=== PATIENT | male | born 1965 | race Caucasian/White ===

== ENCOUNTER → 2018-01-20 10:21 | Outpatient (CLI) | payer OTHER, SELFPAY ==
--- NOTE | 2018-01-20 10:23 | RAD_ITS ---
STUDY: X-RAY - RIGHT SHOULDER REASON FOR EXAM: Male, 52 years old. Shoulder pain TECHNIQUE: 3 view(s) of the shoulder. COMPARISON: Previous study of 10/14/2016 FINDINGS: Normal glenohumeral articulation. Normal acromioclavicular joint. Normal acromion. Normal humeral head and visualized proximal humerus. The soft tissue structures are unremarkable. Normal visualized pulmonary apex. RAD/Shoulder min 2 Views IMPRESSION: Normal x-ray examination of the shoulder. Electronically Signed: Daniele Sanabria MD at 18:17 EST , Service support ,
== END ==
PROVIDERS: Family Provider Internal Medicine; PCP Internal Medicine; Referring Provider Physician Assistant; Visit Provider Physician Assistant
DX: M25.511 Pain in right shoulder (principal)
CPT/HCPCS: 73030

== ENCOUNTER 2018-02-17 15:30 | Outpatient (RCR) | payer OTHER, SELFPAY ==
--- NOTE | 2018-02-08 13:59 | HP.PTEVAL_ITS ---
Patient's Visit Information KATHIE MILLER is a 52 year old M referred to Physical Therapy by LYNN Colvin with a diagnosis of RIGHT ROTATOR CUFF IMPINGEMENT. Date of Evaluation: 02/08/18 Physical Therapist: Naveed Diaz PT, Cert MDT, OCS - Visit Plan Frequency: 1-2x /Week Duration: 4 Weeks Plan: POSTURAL EX'S,RTC /SCAPULAR STRENGTHENING ,MODALITIES ON IF NEEDED - Subjective Findings: Tghis 52 y/o male presents to physical therapy with right shoulder imingement. Patient has had right shoulder pain since August no predisopsing factors otherthan general activities. Intially, seen family DR Mederos tried injections didn't help. Then 2 weesk ago seen Waldemar Bowen ,did x-rays - and did cortisone injection thus is better.Symptom worse ovehead activities ,cross arms ,moving to side affects ADL'S and job demands. Patient sleeping okay. Denies parthesia/tingling.Patient pain affects QOL and job demands/ADL'S. SOCIAL: . VOCATION: [employer] - Pain Right Shoulder Pain Intensity (Out of 10): 0 Pain Intensity Range: 10 - Objective POSTURE: mild foward posture. NEURO: intact. PALAPTION: unremarkable. AROM: shoulder flexion/abd 160 degrees,ER 90 ,IR 80. OP mild soreness end range. MMT: RTC 4/5 supraspinatous 4-5/,mild soreness,deltoid 4-/5 - Special Tests R Shoulder External Rotation Lag Test - RC Tear: Negative R Shoulder Supine Impingement Test - RC Tear: Negative R Shoulder Lift Off Test - Subscapular Tear: Negative R Shoulder Drop Sign - IS Test: Negative R Shoulder Empty Can - SS: Positive R Shoulder Belly Press - SupScap: Negative R Shoulder Neer - Impingement: Positive R Shoulder Carrington Clyde - Impingement: Positive - Goals Goal 1:: Independant with HEP. Goal Time Frame: 2-4 Weeks Goal 2:: Patient to be Independant with posture Goal Time Frame: 2-4 Weeks Goal 3:: Patient decrease pain with all activities 90% to improve function Goal Time Frame: 2-4 Weeks Goal 4:: Patient to improve RTC 5/5 to improve functioon Goal Time Frame: 2-4 Weeks Goal 5:: Patient to improve DASH SHOULDER YOSEPH by 5 points or greater to improve. Goal Time Frame: 2-4 Weeks - Rehabilitation Potential Physical Therapy Diagnosis: This patient has chronic tendonesis with impingement which affects function with OH activities with ADLS' and function Rehabilitation Potential: Good - Anticipated Interventions Patient/Client Instruction: Educate patient on: Condition, Plan of Care For the Purpose of:: To decrease pain, To increase ROM, To improve muscle performance and motor function, To improve ability to perform ADL's, To increase tolerance to activity/condition/position, To improve ability of physical actions for home/community/work/leisure, To improve health of tissue, To decrease soft tissue restriction, To improve ability to perform tasks related to life management Therapeutic Exercise to Include: Strength training, Postural training, Flexibilty training, Active ROM, Scapular Strength/Stabilization For the Purpose of:: To decrease pain, To increase ROM, To improve muscle performance and motor function, To improve ability of physical actions for home/community/work/leisure, To reduce risk of recurrence, To improve ability to perform tasks related to life management TENS: Yes IF ES: Yes Cryotherapy (ice pack, ice massage): Yes Thermo therapy (hot pack): Yes Ultrasound (thermal/non thermal): Yes For the Purpose of:: To decrease pain, To decrease swelling/inflammation, To improve health of tissue, To decrease soft tissue restriction Thank you for the opportunity to evaluate your patient. For Medicare and Medicare HMO plans, please review the plan of care and approve it. It will need to be FAXED BACK to us at [phone] for Medicare purposes. For Medicare only, by signing this I certify the plan of care. Please let me know if there are questions or concerns regarding this plan of care. Physician Signature:___ Date:
--- NOTE | 2018-02-17 15:59 | HP.PTDCSUM ---
HP - PT D/C Summary It has been my pleasure to treat KATHIE MILLER under orders from LYNN Colvin, for the diagnosis of RIGHT ROTATOR CUFF IMPINGEMENT for a total of 2 visit(s). Discharge Date: 02/17/18 Please see the following information for a summary of their discharge status. - Subjective Subjective: Doing well - Pain Right Shoulder Pain Intensity (Out of 10): 0 - Overall Improvement % Improvement: 100 - Objective Objective/Function: AROM FULL ROM. STRENGTH : RTC 5/5,DELTOID 4/5. -IMPINGMENT - Goals Goal 1:: Independant with HEP. Goal Progress: Goal Met Goal 2:: Patient to be Independant with posture Goal Progress: Goal Met Goal 3:: Patient decrease pain with all activities 90% to improve function Goal Progress: Goal Met Goal 4:: Patient to improve RTC 5/5 to improve functioon Goal Progress: Goal Met Goal 5:: Patient to improve DASH SHOULDER YOSEPH by 5 points or greater to improve. Goal Progress: Goal Met - Plan Plan: D/C - D/C Information Discharge Comments: HEP If there are questions or concerns regarding this patient's physical therapy, please feel free to call me at [phone]. Thank you for the referral of this patient. Sincerely, Naveed Diaz PT, Cert MDT, OCS
== END 2018-02-17 19:00 | disposition home or self-care (01) ==
LOC: PT 15:30
PROVIDERS: Family Provider Internal Medicine; PCP Internal Medicine; Referring Provider Physician Assistant; Visit Provider Physician Assistant
DX: M25.811 Other specified joint disorders, right shoulder (principal)
CPT/HCPCS: 97110; 97161

== ENCOUNTER 2018-03-18 15:28 | Emergency (ER) | payer OTHER, SELFPAY ==
[2018-03-18 15:29] VITALS: BP 145/94; PULSE 99; RESP 16; TEMP 37.1; O2SAT 95; BMI 35.0
--- NOTE | 2018-03-18 16:07 | ED.VISSUMM ---
- ER Visit Summary Date of Service: 03/18/18 Chief Complaint: Left thumb injury History of Present Illness: The patient is a 53 M presenting with left thumb injury. Patient was hammering and accidentally hit his left thumb. He is right-handed. This was not work related. He does not recall his last tetanus immunization. No other injuries. Physical Examination: Vitals are stable. Patient is afebrile. Alert no acute distress. HEENT exam is unremarkable. Neck is supple. Lungs are clear and equal bilaterally. Heart is regular rate and rhythm. Extremities left thumb 1.5 cm palmar laceration. 0.5 cm dorsal laceration. Tendon function is normal. Normal cap refill. Skin is warm and dry. No focal neurologic deficit. Remainder of exam is unremarkable. Emergency Department Course and Treatment: Patient was given tetanus IM. Digital block was performed. Laceration was irrigated. A total of 4 simple sutures were placed. 3 in the palmar laceration and one in the dorsal laceration. Patient tolerated this well. Advised wound care instructions. Advised to follow-up with primary care physician. Advised return to ED if worsening complaints. Disposition: Discharge home Impression: Left thumb laceration, laceration repair This note was generated with [employer] dictation software. It may contain incorrect words, spelling, and punctuation that were not noted in review of the chart prior to signing ED Disposition - Plan for ED Patient: Instructions: ED Laceration Hand Referrals: Ruby Early DO [Primary Care Provider] -
--- NOTE | 2018-03-18 16:08 | RAD_ITS ---
STUDY: X-RAY - LEFT HAND REASON FOR EXAM: Male, 53 years old. Film injury. TECHNIQUE: 3 view(s) of the hand. COMPARISON: None. FINDINGS: Normal radiocarpal articulation. Normal distal radioulnar joint. Normal visualized carpal bones. Normal carpal articulations Normal carpometacarpal articulation of the thumb. Normal second through fifth carpometacarpal joints. Normal metacarpi. Normal metacarpophalangeal joint of the thumb. Normal interphalangeal joint of the thumb. Normal proximal and distal phalanges of the thumb. Normal metacarpophalangeal joints of the second through fifth fingers. Normal proximal and distal interphalangeal joints of the second through fifth fingers. Normal phalanges of the second through fifth fingers. The soft tissue structures are unremarkable. RAD/Hand Min 3 Views IMPRESSION: Normal x-ray examination of the hand. Electronically Signed: Debra Galeana MD at 17:57 EST Tel , Service support ,
--- NOTE | 2018-03-18 18:15 | ED.DEP ---
ED Disposition - Plan for ED Patient: Instructions: ED Laceration Hand Referrals: Ruby Early DO [Primary Care Provider] -
[2018-03-18] MEDS: Diphth,Pertuss(Acell),Tet Vac 0.5 ML Vial IM (18:29)
== END 2018-03-18 18:37 | disposition home or self-care (01) ==
PROVIDERS: Emergency Provider Emergency Medicine; Family Provider Internal Medicine; PCP Internal Medicine
DX: S61.012A Laceration without foreign body of left thumb without damage to nail, initial encounter (principal); W22.8XXA Striking against or struck by other objects, initial encounter; Y93.9 Activity, unspecified; Y92.89 Other specified places as the place of occurrence of the external cause; Y99.9 Unspecified external cause status; E11.9 Type 2 diabetes mellitus without complications
CPT/HCPCS: 12001; 73130; 90471; 90715; 99283

== ENCOUNTER → 2019-04-23 | Outpatient (CLI) | payer OTHER, SELFPAY ==
[2019-04-23 12:36] VITALS: BMI 33.7
--- NOTE | 2019-04-23 12:40 | RAD_ITS ---
STUDY: X-RAY - RIGHT FOOT CLINICAL: Male, 54 years old. Foot pain/injury, heard pop, pain bottom of foot TECHNIQUE: 3 view(s) of the foot. COMPARISON: None. FINDINGS: There is a plantar calcaneal spur. Normal visualized subtalar, talonavicular, calcaneocuboid, tarsal and tarsometatarsal articulations. Normal metatarsi. Normal metatarsophalangeal joint of the great toe. There is a bipartite tibial sesamoid. Normal interphalangeal joint of the great toe. Normal phalanges of the great toe. Normal second through fifth metatarsophalangeal joints. Normal interphalangeal joints and phalanges of the lesser toes. Soft tissue swelling. RAD/Foot min 3 Views IMPRESSION: Soft tissue swelling. Small plantar spur. Electronically Signed: Jamie Pugh, at 13:02 EDT , Service support ,
== END | disposition home or self-care (01) ==
LOC: HPRAD 12:40
PROVIDERS: PCP Internal Medicine; Referring Provider Physician Assistant Surgical; Visit Provider Physician Assistant Surgical
DX: S96.911A Strain of unspecified muscle and tendon at ankle and foot level, right foot, initial encounter (principal)
CPT/HCPCS: 73630

== ENCOUNTER → 2019-07-20 | Outpatient (CLI) | payer OTHER, SELFPAY ==
[2019-07-06 12:39] VITALS: BMI 33.7
--- NOTE | 2019-07-20 12:31 | RAD_ITS ---
STUDY: X-RAY - RIGHT ELBOW REASON FOR EXAM: Male, 54 years old. PAIN TECHNIQUE: 3 view(s) of the elbow. COMPARISON: Comparison is made with prior examination dated December 19, 2014. FINDINGS: Normal visualized humerus, radius and ulna. Normal radiocapitellar and ulnotrochlear articulations. The soft tissue structures are unremarkable. RAD/Elbow min 3 Views IMPRESSION: Normal x-ray examination of the elbow. Electronically Signed: Jamie Pugh, at 15:06 EDT , Service support ,
== END | disposition home or self-care (01) ==
LOC: HPRAD 12:31
PROVIDERS: PCP Internal Medicine; Referring Provider Physician Assistant; Visit Provider Physician Assistant
DX: M25.521 Pain in right elbow (principal)
CPT/HCPCS: 73080

== ENCOUNTER 2021-08-13 07:30 | Outpatient (RCR) | payer OTHER, SELFPAY ==
--- NOTE | 2021-06-24 08:44 | HP.OTEVAL_ITS ---
Patient's Visit Information KATHIE MILLER is a 56 year old M, referred to Occupational Therapy by Dr. 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 Date of Evaluation: 06/23/21 Occupational Therapist: Griselda Neal, OTR/L, CHT - Subjective Pt. is a 56 y/o male who underwent CMC arthroplasty on 05-28-21, 4 weeks this . Has been bothering him for a couple of years. Issues with both R & L, L bothered him more and has chosen to do this sx first and plans to do the R later this year. He is right handed. 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 - ADLs Fasteners: Buttons Kitchen: Open jars Comments: no issues Miscellaneous: Play musical instrument Comments: Issues with opening jars, buttons, and playing guitar. - Pain Left Hand 0 Pain Intensity Range: 2 - ROM Shoulder: B WFL Elbow: B WFL Forearm: B WFL CMC: R 20/10, L 0/10 MP: R 55, left 25 flexion IP: R +10/65, L+10/35 Opposition: Kapandji opposition scale right 10 left 4 ROM Comments: nerve pain down through LUE from shoulder - Strength Venue Coordinator: R 95# Lateral Pinch: R 15# Tripod Pinch: R 15# Tip-to-Tip Pinch: R12# Strength Comments: Will assess L hand and pinch at a later date - Sensation Thumb: B 3.61 Index: B 3.61 Middle: R 2.83 Ring: L 2.83 Little: B 3.61 Sensation Comments: L thumb pad and at L MC joint numb & getting zingers at times - Quick DASH-Disab of Arm,Shoulder& Hand Quick DASH Score: 34.0900 - Goals Goal:100% adherence to protocol: Yes Comment: Dr. 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 Carlos NOBLE. He had surgery of L thumb CMC arthroplasty, ligament reconstruction with suspensionplasty, & internal brace left thumb, adductor release L thumb, tenosynovectomy L 1st dorsal compartment on 05-28-21, about 4 weeks ago. Guidewire in base of 2nd MCP to 1st MCP. Has a 2 suture anchors and suture tape, gel foam in trapezium space. Pt. has a long thumb spica splint to protect the wrist to below the IP. Educated pt. on what to expect during recovery, Dr. Alamo guidelines, and HEP. His deficits of decreased L hand match up person/strength has decreased indep with ADL tasks (fasteners) and IADL tasks (playing guitar). He would benefit from skilled OT services 1-2x a week for 6 weeks for assessment of orthotics, ROM, scar mgt, and strengthening to improve L hand use with daily activities. Pt. demo'd understanding & agreeable to POC. Therapy session was directly supervised and doc. reviewed by Griselda Neal OTR/Ricardo,CHT. Rehabilitation Potential: Excellent - Anticipated Interventions A/AAROM/PROM, Strengthening, Scar Care, Wound Care, Orthoses, Joint Protection/Energy Conservation, Ergonomic Education, Fine Motor Coord/Zohaib, Education re Diagnosis, Education re Self Massage Techniques, Home Program Other Interventions: pt. verbalized that he has the comfort cool brace. - Visit Plan Frequency: 2x /Week Duration: 6 Weeks General Plan: use Dr. Alamo CMC guideline. at 4 weeks PROM to wrist, CMC motion. 5-6 weeks perfab thumb orthotic daytime use, custom one at night for 12 weeks CMC stabilization. 6-7 weeks strengthening. 12 weeks discontinue custom orthotics. 07-10-21 follow up visit with Dr. Rodarte TEXT: Thank you for the opportunity to evaluate your patient. For Medicare and Medicare HMO plans, please review the plan of care and approve it. It will need to be FAXED BACK to us at [phone] for Medicare purposes. Please let me know if there are questions or concerns regarding this plan of care. Physician Signature: Date:
--- NOTE | 2021-06-24 08:45 | HP.OTEVAL_ITS ---
Patient's Visit Information KATHIE MILLER is a 56 year old M, referred to Occupational Therapy by Dr. 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 Date of Evaluation: 06/23/21 Occupational Therapist: Griselda Neal, OTR/L, CHT - Subjective Pt. is a 56 y/o male who underwent CMC arthroplasty on 05-28-21, 4 weeks this . Has been bothering him for a couple of years. Issues with both R & L, L bothered him more and has chosen to do this sx first and plans to do the R later this year. He is right handed. 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 - ADLs Fasteners: Buttons Kitchen: Open jars Comments: no issues Miscellaneous: Play musical instrument Comments: Issues with opening jars, buttons, and playing guitar. - Pain Left Hand 0 Pain Intensity Range: 2 - ROM Shoulder: B WFL Elbow: B WFL Forearm: B WFL CMC: R 20/10, L 0/10 MP: R 55, left 25 flexion IP: R +10/65, L+10/35 Opposition: Kapandji opposition scale right 10 left 4 ROM Comments: nerve pain down through LUE from shoulder - Strength Computer Systems Hardware Analyst: R 95# Lateral Pinch: R 15# Tripod Pinch: R 15# Tip-to-Tip Pinch: R12# Strength Comments: Will assess L hand and pinch at a later date - Sensation Thumb: B 3.61 Index: B 3.61 Middle: R 2.83 Ring: L 2.83 Little: B 3.61 Sensation Comments: L thumb pad and at L MC joint numb & getting zingers at times - Quick DASH-Disab of Arm,Shoulder& Hand Quick DASH Score: 34.0900 - Goals Goal:100% adherence to protocol: Yes Comment: Dr. 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 Carlos NOBLE. He had surgery of L thumb CMC arthroplasty, ligament reconstruction with suspensionplasty, & internal brace left thumb, adductor release L thumb, tenosynovectomy L 1st dorsal compartment on 05-28-21, about 4 weeks ago. Guidewire in base of 2nd MCP to 1st MCP. Has a 2 suture anchors and suture tape, gel foam in trapezium space. Pt. has a long thumb spica splint to protect the wrist to below the IP. Educated pt. on what to expect during recovery, Dr. Alamo guidelines, and HEP. 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 He would benefit from skilled OT services 1-2x a week for 6 weeks for assessment of orthotics, ROM, scar mgt, and strengthening to improve L hand use with daily activities. Pt. demo'd understanding & agreeable to POC. Therapy session was directly supervised and doc. reviewed by Griselda Neal OTR/Ricardo,CHT. Rehabilitation Potential: Excellent - Anticipated Interventions A/AAROM/PROM, Strengthening, Scar Care, Wound Care, Orthoses, Joint Protection/Energy Conservation, Ergonomic Education, Fine Motor Coord/Zohaib, Education re Diagnosis, Education re Self Massage Techniques, Home Program Other Interventions: pt. verbalized that he has the comfort cool brace. - Visit Plan Frequency: 2x /Week Duration: 6 Weeks General Plan: use Dr. Alamo CMC guideline. at 4 weeks PROM to wrist, CMC motion. 5-6 weeks perfab thumb orthotic daytime use, custom one at night for 12 weeks CMC stabilization. 6-7 weeks strengthening. 12 weeks discontinue custom orthotics. 07-10-21 follow up visit with Dr. Rodarte TEXT: Thank you for the opportunity to evaluate your patient. For Medicare and Medicare HMO plans, please review the plan of care and approve it. It will need to be FAXED BACK to us at [phone] for Medicare purposes. Please let me know if there are questions or concerns regarding this plan of care. Physician Signature: Date:
--- NOTE | 2021-07-03 10:40 | HP.OTREVAL ---
Dr. 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 Please see the progress note below for an update on the occupational therapy plan of care! Subjective: pt returns to OT after 10 days following out of town work trip Pt. feeling like his L hand is swollen from recent flying/altitude. pt arrives 5 weeks post sx (06-27-21). Pt. reported that he has been putting vitamin E oil on skin and wearing orthotic. pt denies pain just stiffness felling- Objective/Function: palm measurement for comfort cool 25 cm Left size large. measured on ulnar side 20*/60* wrist. -3/30* thumb MP. 47* flexion thumb IP. after MEM. measured on radial side 55*/50* L wrist. Thumb 30* MP flex. IP 50* flexion. opposition to thumb to PF tip. 10* CMC flexion. therapist ed. pt on use of scar gel at night d/c if skin irritation occurs. pt demo understanding. pt is making good gains with his ROM and will transition pt at 6 weeks to comfort cool and to light miller helper strengthening/ UE strengthening and will initiate light pinch at about 8 weeks based on objective and subjective input from pt and DR. Plan Frequency: 1-2x /Week Duration: 6 Weeks Plan: 5-6 pre-shawanda thumb orthotic (comfort cool), wear custom orthotic at night and heavy work. CMC stabilization exercises. 6-7 weeks strengthening. 12 weeks discontinue custom orthosis. Goals - Goals Patient Goals: Regain Mobility, Regain Strength, Decrease Pain, Decrease Swelling/Stiffness, Improve Fine Motor Skills, Use Hand/Wrist/Arm Normally Again, Decrease Tingling/Numbness, Resume Former Household Responsibilities (Cooking,Cleaning,Yard, etc.), Resume Hobbies Other: just get back to playing [email or web address] Goal:100% adherence to protocol: Yes Goal:Daily scar massage when approriate: Yes Goal:ROM equal to unaffected hand: Yes Goal:Animal Physiology Teacher/Pinch strength at least 75% of unaffected hand: Yes Goal:No pain with affected hand use: Yes Goal:Full use of affected hand in daily activities including: Yes Goal:Decrease scar hypersensitivity: Yes Anticipated Interventions Anticipated Interventions: A/AAROM/PROM, Strengthening, Scar Care, Wound Care, Orthoses, Joint Protection/Energy Conservation, Ergonomic Education, Fine Motor Coord/Zohaib, Education re Diagnosis, Education re Self Massage Techniques, Home Program Other Interventions: pt. verbalized that he has the comfort cool brace. Please do not hesitate to contact me at [phone] by phone or if you have questions or concerns regarding this new plan of care! Sincerely, Griselda Neal, OTR/L, CHT
--- NOTE | 2021-12-16 12:51 | HP.OT.NRP ---
KATHIE MILLER was seen in my office for initial evaluation on 06/23/21. The following Plan of Care was established for this patient: Initial Frequency: 1-2x /Week Initial Duration: 6 Weeks Plan: 5-6 pre-shawanda thumb orthotic (comfort cool), wear custom orthotic at night and heavy work. CMC stabilization exercises. 6-7 weeks strengthening. 12 weeks discontinue custom orthosis. Anticipated Interventions: A/AAROM/PROM, Strengthening, Scar Care, Wound Care, Orthoses, Joint Protection/Energy Conservation, Ergonomic Education, Fine Motor Coord/Zohaib, Education re Diagnosis, Education re Self Massage Techniques, Home Program Other Interventions: pt. verbalized that he has the comfort cool brace. This patient was last seen in our office 06/23/21. Pertinent comments regarding their Occupational therapy will appear below: pt was seen for 8 OT session the below measurements taken last apt. pt was reporting 70% improvement at that time. left wrist 50/45 left cmc 10 left MP 50 left IP 60 left chief design engineer 60# left 80# left lateral pinch 8# left tripod pinch 3# pt has not scheduled further apts and is d/c at this time due to time laps in services. At this point I will be discontinuing this patient from occupational therapy. I would be happy to see this patient again in the future if found appropriate by the physician. Thank you! Griselda Neal, OTR/L, CHT
== END 2021-08-13 19:00 | disposition home or self-care (01) ==
LOC: OT 07:30
PROVIDERS: PCP Internal Medicine
DX: M18.12 Unilateral primary osteoarthritis of first carpometacarpal joint, left hand (principal)
CPT/HCPCS: 97110; 97140; 97166